=== PATIENT | female | born 1975 | race Caucasian/White ===

== ENCOUNTER 2022-12-26 05:57 | Observation (INO) ==
[~2022-12-26 05:57] MED LIST: Buffered Lidocaine 1% SYRIN 1 ml INTRADERM ONE; Chlorhexidine MOUTHWASH 0.12% 15 ML UDC ONE; HYDROcodone/ACETAMIN 5/325 mg TAB PO PRN; Lactated Ringers 1000 ml BAG 1,000 ML IV SCH; Metoclopramide 5 MG/ML VIAL (10 mg) IV PRN; Naloxone 0.4 mg VIAL 0.4 mg/ml 1 ml VIAL IV PRN; Ondansetron 4 mg VIAL 2 MG/ML 2 ml VIAL IV PRN; fentaNYL 100 mcg/2 ml 50 MCG/ML VIAL IV PRN
[2022-12-26] MEDS ORDERED: ceFAZolin 2 GM in NS PREMIX 2 GM/100 ML BAG IVPB ONE (06:33)
[2022-12-26] MEDS ORDERED: Midazolam 2 mg/2 ml VIAL 1 mg/ml 2 ml VIAL (2 mg) ONE ×2 (06:37→07:37)
[2022-12-26] MEDS ORDERED: Lidocaine 2% PF 5 ML VIAL ONE (06:37)
[2022-12-26] MEDS ORDERED: Rocuronium 50 mg VIAL 10 mg/ml 5 ml VIAL (50 mg) ONE ×2 (06:37→08:01)
[2022-12-26] MEDS ORDERED: Phenylephrine IV 10 MG/ML 1 ml VIAL ONE (06:37)
[2022-12-26] MEDS ORDERED: Ondansetron 4 mg VIAL 2 MG/ML 2 ml VIAL ONE ×2 (06:37→11:29)
[2022-12-26] MEDS ORDERED: Propofol 10 MG/ML 20 ML BTL ONE ×2 (06:37→06:53)
[2022-12-26] MEDS ORDERED: Dexamethasone IV 4 MG/ML VIAL 1 ml VIAL ONE ×2 (06:37→06:53)
[2022-12-26] MEDS ORDERED: fentaNYL 100 mcg/2 ml 50 MCG/ML VIAL ONE ×4 (06:37→09:18)
[2022-12-26 07:03] LABS: Rapid COVID-19 Molecular Undetected (Undetected)
[2022-12-26] MEDS ORDERED: Lidocaine 1% w EPI 1:100,000 MDV 20 ML VIAL ONE (07:11)
[2022-12-26] MEDS ORDERED: Gelfoam 12-7 ADSORBABL SPONGE ONE (07:12)
[2022-12-26] MEDS ORDERED: ceFAZolin VIAL VIAL ONE ×2 (07:12→07:17)
[2022-12-26] MEDS ORDERED: Thrombin 5,000 UNITS 1 APPLIC KIT - topical use - TOPICAL ONE (07:12)
[2022-12-26] MEDS ORDERED: Gelfoam Sponge SIZE 100 SPONGE ONE (07:17)
[2022-12-26] MEDS ORDERED: Phenylephrine 40 mcg/mL 10mL (400mcg) SYRINGE ONE (09:28)
[2022-12-26] MEDS ORDERED: HYDROcodone/ACETAMIN 5/325 mg TAB PO PRN (10:15)
[2022-12-26] MEDS ORDERED: Calcium Carb (TUMS) 500 mg CHEW TAB PO PRN (10:15)
[2022-12-26] MEDS ORDERED: Senna TAB 8.6 mg TAB PO PRN (10:15)
[2022-12-26] MEDS ORDERED: Metoclopramide 5 MG/ML VIAL (10 mg) IV PRN (10:20)
[2022-12-26] MEDS ORDERED: Lactated Ringers 1000 ml BAG 1,000 ML IV SCH (11:00)
[2022-12-26] MEDS ORDERED: Metoclopramide 5 MG/ML VIAL (10 mg) ONE (11:28)
[2022-12-26] MEDS: HYDROcodone/ACETAMIN 5/325 mg TAB PO PRN ×2 (14:04→20:56)
[2022-12-26] MEDS ORDERED: Metoclopramide 5 MG/ML VIAL (10 mg) IV ONE (14:33)
[2022-12-26] MEDS ORDERED: Scopolamine 1 mg/72hr PATCH TRANSDERM SCH (20:00)
[2022-12-27 10:02] VITALS: BP 106/68
== END 2022-12-27 10:40 | disposition home or self-care (01) ==
LOC: AA 05:57 → INTOOBSV 05:57 → SSU 12:59
PROVIDERS: ADMIT Neurological Surgery; ATTEND Neurological Surgery